=== PATIENT | male | born 1940 | race Caucasian/White ===

== ENCOUNTER 2018-04-14 08:44 | Day surgery (SDC) | payer MEDICARE, BC ==
[2018-04-14 09:49] VITALS: BP 135/66; TEMP 96.9
--- NOTE | 2018-04-14 11:37 | RAD ---
LUMBAR PUNCTURE: (HIGH VOLUME SPINAL TAP) DATE: 04-14-18 HISTORY: 78-year-old male with hydrocephalus, gait abnormality and memory loss, possible normal pressure hydr ocephalus. Technique: Signed informed consent obtained. Physical therapist evaluation of the patient prior to the lumbar puncture and drainage. Patient placed prone on fluoroscopy. Skin of lower back prepared and draped in the usual sterile fash ion. 25 gauge needle used to apply buffered Lidocaine superficially and deeply. Under brief, intermit tent fluoroscopy, a 20 gauge spinal needle was advanced into the spinal canal from a right paramedian approach at L2-3 level. Upon brisk return of clear CSF, a three way stop cock was placed on the spin al needle, and the patient was turned in left lateral decubitus position. Opening pressure was measur ed with manometer. A total of 30 mL of the clear CSF then was slowly drained and discarded. The manom eter was placed back on the three way stop cock, and closing pressure was measured. Spinal needle was removed. Patient tolerated the procedure well. No complications. FINDINGS: Opening pressure: 13 cm H2O (CSF) Closing pressure: 8 cm H2O (CSF) CSF is clear and non-hemorrhagic. Initial fluoroscopic spot images demonstrates tip of hemostat at the L2-3 level. Single lateral fluoroscopic spot image demonstrates distal tip of spinal needle within the posterior aspect of the spinal canal. IMPRESSION: 1. Successful high volume lumbar puncture, with drainage of 30 mL of cerebrospinal fluid. 2. Opening pressure 13 cm H2O. Closing pressure 8 cm H2O. POS: [facility]
== END 2018-04-14 12:20 | disposition home or self-care (01) ==
LOC: RAD 08:44
PROVIDERS: ATTEND Neurological Surgery
PROC: 009U3ZX Drainage of Spinal Canal, Percutaneous Approach, Diagnostic (ICD-10-PCS; principal; 2018-04-14)
PROC: B01BZZZ Fluoroscopy of Spinal Cord (ICD-10-PCS; 2018-04-14)
DX: G91.9 Hydrocephalus, unspecified (principal); R26.9 Unspecified abnormalities of gait and mobility; Z79.82 Long term (current) use of aspirin; Z79.84 Long term (current) use of oral hypoglycemic drugs; Z79.899 Other long term (current) drug therapy
CPT/HCPCS: 62270; 97139; 97530; G8978; G8979

== ENCOUNTER 2018-06-03 08:59 | Inpatient (IN) | payer MEDICARE, BC ==
[2018-06-02 10:12] VITALS: BMI 29.2
--- NOTE | 2018-06-03 07:44 | HP ---
HISTORY OF PRESENT ILLNESS: Mr. Olguin is a very pleasant gentleman reporting for evaluation of p ossible hydrocephalus. His friend states that over the past 6 months, he has had a slow deterioratio n and the short-term memory recall. He also has increased gait trouble over the last 3-4 months wher e he is little unsteady. He denies any bowel or bladder issues and does not have a decreased level o f consciousness or fatigue. More specifically short term memory is concerning him as well as mild ga it trouble. He has an MRI on disc from [facility] that reveals moderately and marked ve ntricular system throughout including both lateral ventricles, third and fourth ventricles. There is no obvious periventricular hyperintensity that would indicate transependymal flow, but does not necc esarily exclude NPH. He does have a large volume lumbar tap recently that resulted in significant im provement in his gait function. PAST MEDICAL HISTORY: Significant for anxiety, depression, hypercholesterolemia, diabetes, hypertens ion. PAST SURGICAL HISTORY: Unspecified back surgery and shoulder surgery. ALLERGIES: No known drug allergies. CURRENT MEDICATIONS: Carvedilol, Januvia, Jardiance, levothyroxine, metformin, rosuvastatin, aspirin , meloxicam, vitamin D3. PHYSICAL EXAMINATION: NEUROLOGIC: Patient is alert and oriented x3. Gait is mildly unsteady and slowed. He has a few sebastian es where he has some brief short-term recall trouble regarding some of his recent historical events t hat his friend helps to clarify. long-term recall seems to be completely unaffected. Cerebellar fun ctions are intact. ASSESSMENT: Normal pressure hydrocephalus. PLAN: Dr. Eller met with the patient, reviewed imaging and advocated for ventriculoperitoneal shunt placement. He explained to the patient the risks, benefits, and alternatives to the procedure. The patient expressed understanding and would like to move forward with surgery discussed. I do believe the patient is mentally competent and capable of making medical decisions for himself. We will move forward with surgery as planned.
[2018-06-03] MEDS ORDERED: Lidocaine 0.5%/Epinephrine 1:200,000 50 ml Vial ONE (09:31)
[2018-06-03] MEDS ORDERED: Sodium Chloride 0.9% 10 ML ONE (09:31)
[2018-06-03] MEDS ORDERED: Thrombin 5000 UNITS/5 ML VIAL ONE (09:31)
[2018-06-03] MEDS ORDERED: CEFAZOLIN/Water 2 GM/20 ML SYRINGE ONE (09:46)
[2018-06-03] MEDS ORDERED: Fentanyl 100 MCG/2 ML VIAL ONE (09:56)
[2018-06-03] MEDS ORDERED: Bacitracin Zinc Ointment 30 gm TUBE ONE (11:19)
[2018-06-03] MEDS ORDERED: Promethazine HCl 25 MG/ML VIAL SLOW IVP PRN (11:20)
[2018-06-03] MEDS ORDERED: Ondansetron HCl/PF 4 MG/2 ML Vial IVP PRN ×2 (11:20→11:41)
[2018-06-03] MEDS ORDERED: Morphine Sulfate 2 MG/ML SYRINGE SLOW IVP PRN (11:20)
[2018-06-03] MEDS ORDERED: Promethazine HCl 25 MG/ML VIAL IM PRN (11:20)
[2018-06-03] MEDS ORDERED: Acetaminophen/Codeine 30-300mg Tablet PO PRN ×2 (11:41)
[2018-06-03] MEDS ORDERED: Acetaminophen 325 MG TAB PO PRN (11:41)
[2018-06-03] MEDS ORDERED: Mag-Al 1200 mg/1200 mg/30 ML UDCUP PO PRN (11:41)
[2018-06-03] MEDS ORDERED: diphenhydrAMINE 50 MG/ML VIAL IVP PRN (11:41)
[2018-06-03] MEDS ORDERED: Labetalol HCl 100 MG/20 ML VIAL SLOW IVP PRN (11:41)
[2018-06-03] MEDS ORDERED: hydrALAZINE 20 MG/ML VIAL SLOW IVP PRN (11:41)
--- NOTE | 2018-06-03 11:52 | OP ---
DATE OF PROCEDURE: 06/03/2018 SURGEON: Bora Eller M.D. [employer]ETING MANAGER: Ray Mo PA-C. INDICATION: Prevent neurologic decline. DIAGNOSIS: Normal pressure hydrocephalus. PROCEDURE PERFORMED: Placement of ventriculoperitoneal shunt. ANESTHESIA: General. TECHNIQUE: The patient was brought into the operating room and placed under general anesthesia. He was placed on the table in a supine position. Two incisions were planned, the first of which was a s ubxiphoid incision, the second of which was a curvilinear incision along the right occiput. After pr epping and draping the both incisions, both incisions were created. A shunt passer was used to pass a peritoneal valve assembly from the head wound down to the peritoneal incision. A single mickey hole was placed in the occiput. A ventricular catheter was placed with 1 pass with egress of normal appea ring spinal fluid. The ventricular catheter was attached to the valve. The distal portion of the pe ritoneal catheter was then carefully placed within the peritoneum. Both incisions were irrigated. B oth incisions were closed in anatomic layers. The procedure came to an end without known complicatio n. The patient's valve was set at 1.5.
[2018-06-03] MEDS: Sodium Chloride 0.9% 1,000 ML IV SCH (14:17)
[2018-06-03] MEDS ORDERED: PROPOFOL 200 MG/20 ML VIAL ONE (14:36)
[2018-06-03] MEDS ORDERED: Glycopyrrolate 0.2 MG/ML 5 ML SYRINGE ONE (14:36)
[2018-06-03] MEDS ORDERED: Ondansetron HCl/PF 4 MG/2 ML Vial ONE (14:36)
[2018-06-03] MEDS ORDERED: Dexamethasone 20 MG/5 ML VIAL ONE (14:36)
[2018-06-03] MEDS ORDERED: Lidocaine 1% PF 5 ML VIAL ONE (14:36)
[2018-06-03] MEDS ORDERED: ePHEDrine/0.9% NaCl/PF SYRINGE 50 mg/10 ml ONE (14:36)
[2018-06-03] MEDS ORDERED: PHENYLEPHRINE-NS 100 MCG/ML 10 ML SYRINGE ONE (14:36)
[2018-06-03] MEDS: Magnesium Oxide 250 MG TAB PO SCH ×2 (15:55→20:04)
[2018-06-03] MEDS: metFORMIN 500 MG TAB PO SCH (17:01)
[2018-06-03] MEDS: CEFAZOLIN/Water 2 GM/20 ML SYRINGE SLOW IVP SCH (17:22)
[2018-06-03] MEDS: Carvedilol 6.25 MG TAB PO SCH (20:04)
[2018-06-03] MEDS ORDERED: Empagliflozin [Jardiance] 25 MG PO SCH (21:00)
[2018-06-03] MEDS ORDERED: Dextrose 50% Abboject 50 ML SYRINGE IVP PRN (22:05)
[2018-06-03] MEDS ORDERED: Dextrose 5% in Water 1,000 ML IV PRN (22:05)
[2018-06-03] MEDS: HumaLOG 300 UNITS/3 ML VIAL SC PRN (22:14)
[2018-06-04] MEDS: CEFAZOLIN/Water 2 GM/20 ML SYRINGE SLOW IVP SCH (01:49)
[2018-06-04] MEDS: Sodium Chloride 0.9% 1,000 ML IV SCH ×2 (01:49→12:19)
[2018-06-04] MEDS: HumaLOG 300 UNITS/3 ML VIAL SC PRN (06:30)
[2018-06-04] MEDS ORDERED: Cephalexin 250 MG CAP PO SCH ×2 (07:00→09:00)
[2018-06-04] MEDS: metFORMIN 500 MG TAB PO SCH (08:43)
[2018-06-04] MEDS: Magnesium Oxide 250 MG TAB PO SCH (08:43)
[2018-06-04] MEDS: Carvedilol 6.25 MG TAB PO SCH (08:46)
[2018-06-04] MEDS ORDERED: Alogliptin 25 MG TAB PO SCH (09:00)
[2018-06-04] MEDS ORDERED: Levothyroxine Sodium 50 MCG TAB PO SCH (09:00)
[2018-06-04] MEDS ORDERED: Losartan 25 MG TAB PO SCH (09:00)
[2018-06-04] MEDS ORDERED: Fish Oil 1,000 MG CAP PO SCH (09:00)
[2018-06-04] MEDS ORDERED: Valsartan 80 MG TAB PO SCH (09:00)
[2018-06-04] MEDS ORDERED: Multivitamin W/ Minerals 1 TAB PO SCH (09:00)
[2018-06-04] MEDS ORDERED: Prevnar 13-Val Conj/PF 0.5 ML SYRINGE IM ONE (09:00)
[2018-06-04] MEDS ORDERED: Rosuvastatin 5 MG TAB PO SCH (09:00)
[2018-06-04] MEDS ORDERED: Cyanocobalamin (Vitamin B-12) 1,000 MCG TAB PO SCH (09:00)
--- NOTE | 2018-06-04 09:45 | PRG ---
DATE OF SERVICE: 06/04/2018 NEUROSURGERY PROGRESS NOTE SUBJECTIVE: I saw Mr. Olguin in his hospital room this morning. He is concerned about some delirium that happened last night. He is clear this morning. He is hoping that his foggy thinking want to return. This morning, he is wide awake. He is talking. He has no dysphagia. All his cranial nerves are working well as he has no lateralizing motor or sensory deficits. The incisions are covered with clean, sterile and dry bandages. I reassured Mr. Olguin that any brain operation, pain medication, in combination with general anesthesia in a 78-year-old, can lead to some delirium. If he is clear this morning and he remains clear through lunch time, he can be discharged. I will keep the dressings on until tomorrow morning, at which time they can both be removed and he can shower. We went over ongoing activity restrictions and wound care. Follow up arrangements will be made by Dr. Eller. SADAF
[2018-06-04 12:14] VITALS: BP 133/66; TEMP 97.8
== END 2018-06-04 13:20 | disposition home or self-care (01) | DRG 33 ==
LOC: SURG A 08:59 → SURG B 13:34
PROVIDERS: ADMIT Neurological Surgery; ATTEND Neurological Surgery
PROC: 00160J6 Bypass Cerebral Ventricle to Peritoneal Cavity with Synthetic Substitute, Open Approach (ICD-10-PCS; principal; 2018-06-03)
DX: G91.2 (Idiopathic) normal pressure hydrocephalus (principal); E78.00 Pure hypercholesterolemia, unspecified; F41.9 Anxiety disorder, unspecified; F32.9 Major depressive disorder, single episode, unspecified; E11.9 Type 2 diabetes mellitus without complications; I10 Essential (primary) hypertension
CPT/HCPCS: 36416; G8978-GP-CJ; G8979-GP-CJ; G8980-GP-CJ; G8987-GO-CI; G8988-GO-CI; G8989-GO-CI; G9168-GN-CJ; G9169-GN-CJ; J0360; J1100; J2001; J2270; J2405; J2704; J3010; J3490

== ENCOUNTER 2020-11-05 09:19 | Outpatient (CLI) | payer MEDICARE, BC | END 2020-11-05 09:20 | disposition home or self-care (01) | LOC: TBSIIMAG 09:19 | PROVIDERS: ATTEND Neurological Surgery | DX: M54.2 Cervicalgia (principal); R26.81 Unsteadiness on feet; M47.812 Spondylosis without myelopathy or radiculopathy, cervical region | CPT/HCPCS: 72141 ==